=== PATIENT | male | born 1970 | race African-American/Black ===

== ENCOUNTER 2022-10-21 10:04 | Day surgery (SDC) | payer OTHER ==
[2022-10-14 09:03] VITALS: BMI 26.0
[2022-10-21 10:25] VITALS: RESP 18
[2022-10-21 10:33] VITALS: PULSE 79
[2022-10-21 11:48] VITALS: BP 116/65; TEMP 97.8
== END 2022-10-21 12:30 | disposition home or self-care (01) ==
LOC: FASU-ENDO 10:04
PROVIDERS: ATTEND Internal Medicine Gastroenterology
PROC: 0DBN8ZX Excision of Sigmoid Colon, Via Natural or Artificial Opening Endoscopic, Diagnostic (ICD-10-PCS; 2022-10-21)
PROC: 0DBM8ZX Excision of Descending Colon, Via Natural or Artificial Opening Endoscopic, Diagnostic (ICD-10-PCS; principal; 2022-10-21 11:22)
DX: R10.13 Epigastric pain (principal); K64.1 Second degree hemorrhoids; K57.30 Diverticulosis of large intestine without perforation or abscess without bleeding; K63.89 Other specified diseases of intestine
CPT/HCPCS: 88305-TC